=== PATIENT | male | born 1985 | race Caucasian/White ===

== ENCOUNTER 2016-11-23 14:50 | Emergency (ER) | payer BC, OTHER ==
[2016-11-23] MEDS ORDERED: Proparacaine 0.5% Ophth Soln 15 ML Bottle ONE (15:28)
[2016-11-23] MEDS ORDERED: Proparacaine 0.5% Ophth Soln 15 ML Bottle EYERT ONE (15:30)
--- NOTE | 2016-11-23 15:50 | EDM.PDOC ---
ED HPI GENERAL MEDICAL PROBLEM - General Chief Complaint: General Stated Complaint: GOT HIT BY A NAIL IN HIS EYE Time Seen by Provider: 11/23/16 15:15 Source of Information: Reports: Patient History Limitations: Reports: No Limitations - History of Present Illness INITIAL COMMENTS - FREE TEXT/NARRATIVE: History of present illness: [31-year-old male presenting with complaint of low to right orbit with a nail. Patient indicates it was the flat side of the nail and he was not certain whether the nail actually stuck in his eye or if it was trapped in his eyelid he indicates that it has not affected his vision but his eye feels weird and has increased pressure.] Review of systems: As per history of present illness and below otherwise all systems reviewed and negative. Past medical history: As per history of present illness and as reviewed below otherwise noncontributory. Surgical history: As per history of present illness and as reviewed below otherwise noncontributory. Social history: No reported history of drug or alcohol abuse. Family history: As per history of present illness and as reviewed below otherwise noncontributory. Physical exam: HEENT: Atraumatic, normocephalic, pupils reactive, negative for conjunctival pallor or scleral icterus, mucous membranes moist, throat clear, neck supple, nontender, trachea midline. Lungs: Clear to auscultation, breath sounds equal bilaterally, chest nontender. Heart: S1S2, regular, negative for clicks, rubs, or JVD. Abdomen: Soft, nondistended, nontender. Negative for masses or hepatosplenomegaly. Negative for costovertebral tenderness. Pelvis: Stable nontender. Genitourinary: Deferred. Rectal: Deferred. Extremities: Atraumatic, negative for cords or calf pain. Neurovascular unremarkable. Neuro: Awake, alert, oriented. Cranial nerves II through XII unremarkable. Cerebellum unremarkable. Motor and sensory unremarkable throughout. Exam nonfocal. Fluorescein stain performed with with lamp noted to have a passive abrasion at the 7:00 area there would be consistent with the head of the nail scraping. Tonometry performed with a 25 obtained on the nonaffected eye and a 36-38 obtained on the right eye. Diagnostics: [] Therapeutics: [Fluorescein stain and Wood's light, tonometry] Impression: [Eye injury] Plan: [Follow-up with Dr. Everett and 30 minutes in his office] Definitive disposition and diagnosis as appropriate pending reevaluation and review of above. Right Eye Pain Score (Numeric/FACES): 4 - Related Data Allergies Allergy/AdvReac Type Severity Reaction Status Date / Time No Known Allergies Allergy Verified 11/23/16 14:59 Home Meds: Home Meds . [No Known Home Meds] 11/23/16 [History] Past Medical History - Past Health History Medical/Surgical History: Denies Medical/Surgical History - Infectious Disease History Infectious Disease History: Reports: Chicken Pox, MRSA Social & Family History - Family History Family Medical History: Noncontributory - Tobacco Use Smoking Status *Q: Never Smoker Second Hand Smoke Exposure: No - Caffeine Use Caffeine Use: Reports: Energy Drinks Caffeine Use Comment: 1-2 drinks/day - Recreational Drug Use Recreational Drug Use: No ED ROS GENERAL - Review of Systems Review Of Systems: See Below (See history of present illness) ED EXAM, GENERAL - Physical Exam Exam: See Below (See history of present illness) Course - Vital Signs Last Recorded V/S: Last Vital Signs Temp 36.5 C 11/23/16 14:56 Pulse 60 11/23/16 14:56 Resp 18 11/23/16 14:56 BP 132/65 11/23/16 14:56 Pulse Ox 97 11/23/16 14:56 - Orders/Labs/Meds Orders: Active Orders 24 hr Category Date Time Status Proparacaine [Proparacaine 0.5% Ophth Soln] Med 11/23/16 15:30 Once 1 ml EYERT ONETIME ONE Medication Orders Proparacaine HCl (Proparacaine 0.5% Ophth Soln) 1 ml EYERT ONETIME ONE Stop: 11/23/16 15:31 Meds: Medications Generic Name Dose Route Start Last Admin Trade Name Freq PRN Reason Stop Dose Admin Proparacaine HCl 1 ml 11/23/16 15:30 Proparacaine 0.5% Ophth Soln EYERT 11/23/16 15:31 ONETIME ONE Departure - Departure Time of Disposition: 16:13 Disposition: Home, Self-Care 01 Condition: Good Clinical Impression: Eye injury - Discharge Information Forms: ED Department Discharge Additional Instructions: The following information is given to patients seen in the emergency department who are being discharged to home. This information is to outline your options for follow-up care. We provide all patients seen in our emergency department with a follow-up referral. The need for follow-up, as well as the timing and circumstances, are variable depending upon the specifics of your emergency department visit. If you don't have a primary care physician on staff, we will provide you with a referral. We always advise you to contact your personal physician following an emergency department visit to inform them of the circumstance of the visit and for follow-up with them and/or the need for any referrals to a consulting specialist. The emergency department will also refer you to a specialist when appropriate. This referral assures that you have the opportunity for follow-up care with a specialist. All of these measure are taken in an effort to provide you with optimal care, which includes your follow-up. Under all circumstances we always encourage you to contact your private physician who remains a resource for coordinating your care. When calling for follow-up care, please make the office aware that this follow-up is from your recent emergency room visit. If for any reason you are refused follow-up, please contact the [facility] Emergency Department at and asked to speak to the emergency department charge nurse. You have an appointment with Dr. Everett to evaluate your I further and 30 minutes Report to [place] upon discharge - My Orders Last 24 Hours: My Active Orders 11/23/16 15:30 Proparacaine [Proparacaine 0.5% Ophth Soln] 1 ml EYERT ONETIME ONE - Assessment/Plan Last 24 Hours: My Active Orders 11/23/16 15:30 Proparacaine [Proparacaine 0.5% Ophth Soln] 1 ml EYERT ONETIME ONE
[2016-11-23 16:57] VITALS: BP 128/65
== END 2016-11-23 16:19 | disposition home or self-care (01) ==
LOC: MW.ED 14:50
DX: S00.211A Abrasion of right eyelid and periocular area, initial encounter (principal); W22.8XXA Striking against or struck by other objects, initial encounter
CPT/HCPCS: 99282; 99283